=== PATIENT | female | born 1980 | race African-American/Black ===

== ENCOUNTER 2020-05-01 10:11 | Emergency (ER) | payer OTHER | END 2020-05-01 12:20 | disposition home or self-care (01) | LOC: FER 10:11 | DX: S83.92XA Sprain of unspecified site of left knee, initial encounter (principal); F32.9 Major depressive disorder, single episode, unspecified; I10 Essential (primary) hypertension; Z79.899 Other long term (current) drug therapy; X58.XXXA Exposure to other specified factors, initial encounter | CPT/HCPCS: 73564 ==